=== PATIENT | female | born 2000 | race Caucasian/White ===

== ENCOUNTER 2022-08-31 10:40 | Inpatient (IN) | payer OTHER ==
[2022-08-31] MEDS ORDERED: Sodium Chloride 0.9% 10 ML Syringe FLUSH PRN (13:09)
[2022-08-31] MEDS ORDERED: Ondansetron 4 MG/2 ML SDV IVPUSH PRN (13:09)
[2022-08-31] MEDS ORDERED: Oxytocin/Lactated Ringers 10 UNIT/1,000 ML BAG IV SCH ×2 (13:15→20:30)
[2022-08-31] MEDS ORDERED: Ampicillin 2 GM in Sodium Chloride 0.9% 100 ML IV ONE (13:30)
[2022-08-31] MEDS: Misoprostol 25 MCG (1/4 of 100 MCG) Tab VAG SCH ×3 (13:34→21:29)
[2022-08-31 13:54] LABS: BASOPHILS ABSOLUTE AUTO 0.01 K/mm3 (0.01-0.08); BASOPHILS PERCENT AUTO 0.1 % (0.1-1.2); EOSINOPHILS ABSOLUTE AUTO 0.11 K/mm3 (0.04-0.36); HEMATOCRIT 37.2 % (34.1-44.9); HEMOGLOBIN 12.4 gm/dl (11.2-15.7); IMMATURE GRAN ABSOLUTE AUTO 0.02 K/mm3 (0.00-0.10); IMMATURE GRAN PERCENT AUTO 0.2 % (<=1.0); LYMPHOCYTES ABSOLUTE AUTO 1.85 K/mm3 (1.18-3.74); LYMPHOCYTES PERCENT AUTO 17.3 % (19.3-51.7); MEAN CORPUSCULAR HEMOGLOBIN 29.5 pg (25.6-32.2); MEAN CORPUSCULAR HGB CONC 33.3 g/dl (32.2-35.5); MEAN CORPUSCULAR VOLUME 88.6 fl (79.4-94.8); MEAN PLATELET VOLUME 11.2 fl (9.4-12.3); MONOCYTES ABSOLUTE AUTO 0.77 K/mm3 (0.24-0.36); MONOCYTES PERCENT AUTO 7.2 % (4.7-12.5); NEUTROPHILS ABSOLUTE AUTO 7.93 K/mm3 (1.56-6.13); NEUTROPHILS PERCENT AUTO 74.2 % (34.0-71.1); PLATELET COUNT,PLT 179 K/mm3 (182-369); WHITE BLOOD CELL COUNT,WBC 10.69 K/mm3 (3.98-10.04)
[2022-08-31] MEDS: Ampicillin 1 GM in Sodium Chloride 0.9% 100 ML IV SCH ×2 (17:46→21:33)
[2022-08-31] MEDS ORDERED: Sodium Chloride 0.9% 10 ML Syringe FLUSH SCH (21:00)
[2022-08-31] MEDS: Nalbuphine 10 MG/0.5 ML Syringe IVPUSH PRN ×2 (22:27→23:35)
[2022-09-01] MEDS ORDERED: ePHEDrine 50 MG/ML SDV IVPUSH PRN (01:19)
[2022-09-01] MEDS ORDERED: diphenhydrAMINE 50 MG/ML SDV IVPUSH PRN (01:19)
[2022-09-01] MEDS ORDERED: fentaNYL 100 MCG/2 ML SDV EPIDUR PRN (01:19)
[2022-09-01] MEDS ORDERED: Bupivacaine/fentaNYL/NS 100 ML Bag EPIDUR PRN (01:19)
[2022-09-01] MEDS: Lactated Ringers 1,000 ML IV SCH ×3 (01:49→04:36)
[2022-09-01] MEDS: Ampicillin 1 GM in Sodium Chloride 0.9% 100 ML IV SCH ×3 (01:49→09:30)
[2022-09-01] MEDS ORDERED: Lidocaine 1% 10 ML MDV ONE (06:00)
[2022-09-01] MEDS ORDERED: Benzocaine/Menthol 20%-0.5% Spray 78 GM Cannister TOP PRN (11:39)
[2022-09-01] MEDS ORDERED: Docusate Sodium 100 MG Cap PO PRN (11:39)
[2022-09-01] MEDS ORDERED: Acetaminophen 325 MG Tab PO PRN (11:39)
[2022-09-01] MEDS ORDERED: Witch Hazel Medicated Pads 40/Jar TOP PRN (11:39)
[2022-09-01] MEDS: Ibuprofen 600 MG Tab PO PRN ×2 (13:52→19:55)
[2022-09-02] MEDS: Ibuprofen 600 MG Tab PO PRN (03:57)
== END 2022-09-03 12:49 | disposition home or self-care (01) | DRG 807 ==
LOC: JD.OB 10:40 → OBSVTOIN 09-01 10:40 → JD.OB 09-01 10:40
PROVIDERS: ADMIT Obstetrics & Gynecology; ATTEND Obstetrics & Gynecology
PROC: 10E0XZZ Delivery of Products of Conception, External Approach (ICD-10-PCS; principal; 2022-09-01)
PROC: 3E0P7VZ Introduction of Hormone into Female Reproductive, Via Natural or Artificial Opening (ICD-10-PCS; 2022-09-01)
PROC: 3E0R3BZ Introduction of Anesthetic Agent into Spinal Canal, Percutaneous Approach (ICD-10-PCS; 2022-09-01)
PROC: 00HU33Z Insertion of Infusion Device into Spinal Canal, Percutaneous Approach (ICD-10-PCS; 2022-09-01)
DX: O48.0 Post-term pregnancy (principal); Z37.0 Single live birth; O42.02 Full-term premature rupture of membranes, onset of labor within 24 hours of rupture; Z3A.40 40 weeks gestation of pregnancy; Z28.39 Other underimmunization status; O77.0 Labor and delivery complicated by meconium in amniotic fluid; O99.824 Streptococcus B carrier state complicating childbirth
CPT/HCPCS: 01967; 36415; 51702; 59025; 59409; 84112; 85025; 86592; A9270-GY; J0290; J2300; J2405; J2590; J3010; J3490; J7120